=== PATIENT | female | born 1955 | race African-American/Black ===

== ENCOUNTER → 2017-11-25 | Outpatient (CLI) | payer OTHER ==
[~2017-11-25] MED LIST: ESTRACE1 MG PO; ESTRADIOL 1 MG T1 M1 PO; IBUPROFEN 600600 M1 PO; KEFLEX500 MG PO; MYRBETRIQ25 MG PO; NAPROSYN500 MG PO; NORCO 5-325 TA1 EACH PO; OXYBUTYNIN 5 MG5 M2 PO; PERCOCET 5-3251 EACH PO; PHENERGAN 25 MG25 MG PO; SENOKOT-S1 TA1 PO; VITAMIN D 5050000 I1 PO; ZZZQUIL PO
== END ==
LOC: MRI 06:24
DX: G44.52 New daily persistent headache (NDPH) (principal); F32.9 Major depressive disorder, single episode, unspecified; Z88.0 Allergy status to penicillin

== ENCOUNTER 2019-12-01 14:31 | Emergency (ER) | payer OTHER ==
[~2019-12-01] VITALS: Ht 162.6 cm; Wt 95.3 kg
[2019-12-01 15:43] LABS: ABSOLUTE NEUTROPHILS 4.1 thou/uL (1.4-8.2); BASOPHILS 0.8 % (0.0-2.0); EOSINOPHILS 3.3 % (0.0-3.0); HEMATOCRIT 40.5 % (37.0-47.0); HEMOGLOBIN 13.4 gm/dL (12.0-15.0); LYMPHOCYTES 27.6 % (24.0-44.0); MCH 27.5 pg (26.0-34.0); MCV 83.3 fL (80.0-100.0); MONOCYTES 10.5 % (1.0-8.0); PLATELET COUNT 290 thou/uL (150-400); POLYS 57.8 % (36.0-66.0); RBC 4.87 mil/uL (4.20-5.00); WBC 7.2 thou/uL (4.0-11.0)
[2019-12-01 15:53] LABS: ANION GAP 8 mmol/L (7-16); BUN 17 mg/dL (7-18); CALCIUM 8.9 mg/dL (8.5-10.1); CHLORIDE 104 mmol/L (98-107); CO2 26 mmol/L (21-32); CREATININE 1.1 mg/dL (0.6-1.0); GLUCOSE 103 mg/dL (74-106); POTASSIUM 3.8 mmol/L (3.5-5.1); SODIUM 138 mmol/L (136-145)
[2019-12-01 16:03] LABS: ALBUMIN 3.9 g/dL (3.4-5.0); SGOT 20 U/L (15-37); SGPT 24 U/L (30-65); TOTAL BILIRUBIN 0.3 mg/dL (<0.1-1.0); TOTAL PROTEIN 7.8 g/dL (6.4-8.2); TROPONIN-I <0.06 ng/mL (<0.06)
--- NOTE | 2019-12-01 16:24 | EKG ---
[facility] [place] [address] ELECTROCARDIOGRAM REPORT Name: LESLEY CANALES Room #: [facility]#: [id number] Admission: 12/01/19 Attend Phys: Discharge: Date of : 57 Report #: [id number] THIS REPORT FOR: cc: Roderick Mosley MD, Thomas P. MD Lundgren, Craig H. MD [facility] ~ THIS REPORT FOR: //name// [facility] ED Test Date: 2019-12-01 Test Time: 15:21:48 Pat Name: LESLEY CANALES Department: Room: Gender: F [employer] Database [employer]st: Reyna : 1955 Requested By: Negar Delcid Order Number: [id number] MD: Haris Gimenez Measurements Intervals [place] Rate: 71 P: 24 NC: 208 QRS: 36 QRSD: 84 T: 31 QT: 407 QTc: 443 Interpretive Statements Sinus rhythm with first-degree AV block Abnormal R-wave progression, early transition Compared to ECG 07/21/2016 03:55:48 Early R wave progression is now present Electronically Signed On 12-01-2019 16:22:28 CDT by Haris Gimenez [email or web address] <ELECTRONICALLY SIGNED> By: Haris Gimenez MD, [facility] 12/01/19 1622 1521 1521 Haris Gimenez MD, [facility] /EPI
[2019-12-01] MEDS ORDERED: IBUPROFEN 400400 M2 PO (18:06)
[2019-12-01] MEDS ORDERED: VALIUM5 MG PO (18:06)
[2019-12-01 18:34] VITALS: BP 137/92
== END 2019-12-01 18:39 | disposition home or self-care (01) ==
LOC: ER 14:31
PROVIDERS: Emergency Medicine Emergency Medical Services
DX: R07.9 Chest pain, unspecified (principal); R05 Cough; F43.9 Reaction to severe stress, unspecified; I10 Essential (primary) hypertension; Z79.899 Other long term (current) drug therapy; Z88.0 Allergy status to penicillin; Z90.710 Acquired absence of both cervix and uterus; Z98.890 Other specified postprocedural states

== ENCOUNTER 2021-05-30 11:16 | Emergency (ER) | payer OTHER ==
[~2021-05-30] VITALS: Ht 162.5 cm; Wt 90.7 kg
[~2021-05-30 11:16] MED LIST changes: +IBUPROFEN 400400 M2 PO; +VALIUM5 MG PO
[2021-05-30] MEDS ORDERED: TIZANIDINE HCL4 M2 PO (11:35)
[2021-05-30] MEDS ORDERED: NORVASC5 MG PO (11:35)
[2021-05-30] MEDS ORDERED: QUETIAPINE FUM150 MG PO (11:35)
[2021-05-30] MEDS ORDERED: METHOCARBAMOL500 M2 PO (13:22)
[2021-05-30 13:42] VITALS: BP 125/78
== END 2021-05-30 13:43 | disposition home or self-care (01) ==
LOC: ER 11:16
DX: S16.1XXA Strain of muscle, fascia and tendon at neck level, initial encounter (principal); S39.012A Strain of muscle, fascia and tendon of lower back, initial encounter; S29.012A Strain of muscle and tendon of back wall of thorax, initial encounter; Z90.710 Acquired absence of both cervix and uterus; Z88.0 Allergy status to penicillin; Z79.899 Other long term (current) drug therapy; V89.2XXA Person injured in unspecified motor-vehicle accident, traffic, initial encounter; Y93.89 Activity, other specified; Y92.89 Other specified places as the place of occurrence of the external cause; Y99.8 Other external cause status

== ENCOUNTER → 2021-07-23 | Outpatient (CLI) | payer OTHER ==
[~2021-07-23] MED LIST changes: +METHOCARBAMOL500 M2 PO; +NORVASC5 MG PO; +QUETIAPINE FUM150 MG PO; +TIZANIDINE HCL4 M2 PO
== END ==
LOC: MRI 09:17
PROVIDERS: ATTEND Nurse Practitioner
DX: M47.816 Spondylosis without myelopathy or radiculopathy, lumbar region (principal); M47.812 Spondylosis without myelopathy or radiculopathy, cervical region; M54.2 Cervicalgia; M54.50 Low back pain, unspecified; M48.02 Spinal stenosis, cervical region; G96.191 Perineural cyst